=== PATIENT | male | born 1955 | race Caucasian/White ===

== ENCOUNTER 2019-10-27 07:59 | Day surgery (SDC) | payer BC ==
[~2019-10-27 07:59] MED LIST: CEFAZOLIN 2 Gram 2 GM/50 ML BAG IVPB ONE; CELECOXIB 100 MG CAPSULE PO ONE; FAMOTIDINE 20MG TABLET PO ONE; METOCLOPRAMIDE 10 MG TABLET PO ONE; SCOPOLAMINE 1 PATCH TDSY TD ONE; VANCOMYCIN 1GM/200ML PREMIX 1 GM/200 ML PIGGYBACK IVPB ONE
[2019-10-27] MEDS ORDERED: ROPIVACAINE HCL (NAROPIN) /PF 5MG/ML 20ML VIAL IV ONE (08:00)
[2019-10-27] MEDS ORDERED: DEXAMETHASONE 4 MG/ML 1ML VIAL IVP ONE (08:00)
[2019-10-27] MEDS ORDERED: MIDAZOLAM HCL 2MG/2ML VIAL IV ONE (08:00)
[2019-10-27] MEDS ORDERED: FENTANYL PF 100MCG/2ML VIAL IV ONE (08:00)
[2019-10-27] MEDS ORDERED: LIDOCAINE 2% MDV (20MG/ML) 20ML VIAL IV ONE (08:00)
[2019-10-27] MEDS ORDERED: PROPOFOL 10 MG/ML VIAL IV ONE (08:00)
[2019-10-27] MEDS ORDERED: HYDROCODONE/APAP 7.5/325MG TABLET PO PRN (08:18)
[2019-10-27] MEDS ORDERED: DIPHENHYDRAMINE HCL 25 MG CAPSULE PO PRN (08:18)
[2019-10-27] MEDS ORDERED: AL HYDROX/MAG HYDROX 30ML UD PO PRN (08:18)
[2019-10-27] MEDS ORDERED: HYDROCODONE/APAP 5/325MG TABLET PO PRN ×2 (08:18)
[2019-10-27] MEDS ORDERED: ACETAMINOPHEN W/ CODEINE 300MG/60MG TABLET PO PRN (08:18)
[2019-10-27] MEDS ORDERED: ONDANSETRON 4 MG ODT TABLET SL PRN (08:18)
[2019-10-27] MEDS ORDERED: BISACODYL 10 MG SUPP RC PRN (08:18)
[2019-10-27] MEDS ORDERED: METOCLOPRAMIDE 10 MG TABLET PO PRN (08:18)
[2019-10-27] MEDS ORDERED: ACETAMINOPHEN 325 MG TAB PO PRN (08:18)
[2019-10-27] MEDS ORDERED: HYDROMORPHONE HCL 2 MG/ML VIAL IM PRN ×2 (08:18)
[2019-10-27] MEDS ORDERED: KETOROLAC 30 MG/ML VIAL IVP PRN (08:18)
[2019-10-27] MEDS ORDERED: NALOXONE 0.4 MG/1 ML VIAL IVP PRN (08:18)
[2019-10-27] MEDS ORDERED: PROMETHAZINE HCL 25 MG TABLET PO PRN (08:18)
[2019-10-27] MEDS ORDERED: ACETAMINOPHEN W/ CODEINE 300MG/30MG TABLET PO PRN ×2 (08:18)
[2019-10-27] MEDS ORDERED: TRAMADOL HCL 50 MG TABLET PO PRN ×2 (08:18)
[2019-10-27] MEDS ORDERED: MAGNESIUM HYDROXIDE 30 ML UDC PO PRN (08:18)
[2019-10-27] MEDS ORDERED: RINGERS SOLUTION,LACTATED 1,000 ML IV ONE ×2 (09:00→11:12)
[2019-10-27 09:18] LABS: ABO GROUP O; ANTIBODY SCREEN NEGATIVE (NEGATIVE); RH TYPE POSITIVE
[2019-10-27] MEDS ORDERED: DOCUSATE SODIUM 100 MG CAPSULE PO SCH (10:00)
[2019-10-27] MEDS ORDERED: VANCOMYCIN HCL 1 GM VIAL IR ONE (10:40)
[2019-10-27] MEDS ORDERED: TRANEXAMIC ACID 1,000 MG/10 ML ML IU ONE (10:40)
[2019-10-27] MEDS ORDERED: BUPIVACAINE 0.5% W/EPI MPF 30 ML VIAL IU ONE (10:40)
[2019-10-27] MEDS ORDERED: TRANEXAMIC ACID 1,000 MG/10 ML ML IVPB ONE (10:40)
[2019-10-27] MEDS ORDERED: VANCOMYCIN HCL 1 GM VIAL IU ONE (10:40)
[2019-10-27] MEDS ORDERED: BUPIVACAINE LIPOSOME 266MG/20ML VIAL IU ONE (10:40)
[2019-10-27] MEDS ORDERED: VANCOMYCIN 500MG/100ML PREMIX 500 MG/100 ML PIGGYBACK IVPB ONE (13:00)
[2019-10-27] MEDS ORDERED: DEXTROSE 5 % AND 0.9 % NACL 1,000 ML IV PRN (13:00)
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
--- NOTE | 2019-10-28 06:03 | Operative Note ---
DATE OF SURGERY: 10/27/2019 PREOPERATIVE DIAGNOSIS: END STAGE LEFT KNEE ARTHROSIS. POSTOPERATIVE DIAGNOSIS: END STAGE LEFT KNEE ARTHROSIS. OPERATION: TOTAL LEFT KNEE ARTHROPLASTY. SURGEON: Mario Barr M.D. ANESTHESIA: Spinal. ANESTHESIA PROVIDER: PAMELLA Beal CRNA COMPLICATION: None. BLOOD LOSS: Minimal. OPERATIVE FINDINGS: [id number] erosive arthrosis lateral compartment. COMPONENTS PLACED: 2 gram Vancomycin cement Chamorro and Nephew Journey Oxinium size 7 femoral component, size 6 tibial baseplate, a 13 mm thick tibial poly insert, and 35 mm cemented patellar component. INDICATIONS FOR OPERATION: This is a 63-year-old male who has had persistent pain and dysfunction in his knee for several years. Failed nonoperative treatment and scheduled for the procedure above. I explained all risks and benefits in detail for the diagnosis and procedure including, but not limited to infection, nerve injury, vessel injury, persistent pain, stiffness, numbness, and tingling in the knee, periprosthetic fracture, need for resection arthroplasty if components become infected, loosen, nerve injury, vessel injury, blood clot, need for anticoagulation to prevent blood clots and risks associated with the use of these medications, and the need for further procedures. All of his questions were answered. Rehab course was outlined. He agreed to proceed. PROCEDURE: The patient was brought to the Operating Room, placed in the supine position, and prepped for surgery. Spinal anesthesia was induced. The left lower extremity and knee were prepped and draped in sterile fashion. The left knee was prepped again with ChloraPrep after it was draped. Intraoperative timeout was performed. Next, the anterior leg was exsanguinated with Esmarch, the knee was flexed. No tourniquet was used during the entire case. We used Aquamantys during each portion and layer of the procedure thoroughly cauterizing. Next the skin and subcutaneous tissue were dissected down and we incised the capsule medially along the medial border of the patella to the tibial tubercle. We incised the vastus medialis in line with its fibers using the medial lateral approach. Partially everted the retropatellar fat, and resected the retropatellar fat pad. We flexed the knee. He had [id number] erosive arthrosis with predominantly significant erosion in the lateral tibial compartment. Next we drilled the intracondylar drill and inserted the intramedullary guide nai with a 6-degree cutting block, aligned off the distal femoral condyles, and pinned it in the +2 mm position and cut the distal femoral condyles. Next we placed a sizing jig on the distal femoral condyle and sized it to be right on size 7. Through the previously placed pin holes, we placed a size 7, 5-in-1 cutting jig, we dialed the anterior cut so it would come out flush without notching. We then did that cut and it was a good flush cut, we then pinned it, and we cut the remainder of the chamfer cuts in the usual fashion. Next we placed a size 7 femoral component, centered it, pinned it, and removed osteophytes off the periphery. We inserted a resection collet, reamed out and box Osteomed out the cruciate bone block. Attention was turned to the tibia. We seated the alignment jig with spikes in the tubercular groove 2 fingerbreadths distal to the anterior tibial cortex off the centered tibial tubercle in reference for a 7 mm cut off the high medial plateau. We then pinned that in placed and verified we covered the posterior lateral erosion with the tibial lateral plateau which it would, we then rechecked the alignment with a drop nai through the cutting jig handle and cross pinned it and cut it to complete its fixation and cut the tibia. Next we removed osteophytes off the posterior femoral condyle using a curved osteotome, checked flexion/extension gap, basically sized up to a size 13 mm block insert, this allowed for 1-2 mm of varus/valgus laxity in flexion/extension. Overall alignment cuts in extension was anatomic in valgus orientation with alignment nai centered on the hip joint and ankle joint. Next we took the knee in flexion, we sized the tibial baseplate to be a size 6. We replaced all trial components, set the rotation tibial baseplate again in extension using the alignment rode centered on the hip joint and ankle joint. Marked pen cavanaugh off the laser marked anterior tibial baseplate. Attention was turned to the patella, and measured the patella to be 13 mm. We got the cutting jig to allow for 9 mm thick poly insert, we cut the patella, remeasured it, and it was at the premeasured size and then sized to be 35, medialized as much as possible, drilled 3 peg holes and inserted the patellar component, then did a trial range of motion and then we mixed cement. The patella tracked nicely handsfree, full extension and flexion to 150 degrees and again symmetric flexion/extension gap. Next we took the knee in flexion, we seated the tibial baseplate off the previously placed electrocautery cavanaugh, and drilled out and keel punched the keel hole. Next we placed a bone plug in the femoral canal hole. Next we irrigated copiously the posterior recesses and next cauterized with Aquamantys and we injected our bolus too as well in the posterior capsule with 0.5% Marcaine with Epinephrine, tranexamic acid, and Exparel mixture. Next we pre-coated both surfaces and placed a drill bit in the tibial hole and then impacted down the real tibial component and verified it was interlocked medially. We impacted down the tibial baseplate and removed excess cement and then the femoral component in the same fashion removing excess cement. We placed the trial tibial poly liner, held the knee in extension, clamped down the patella component removing excess cement until the cement held the knee in extension and removed all excess cement. Next we took the knee in flexion, distracted the knee with the bone hook and sponge, removed any excess remaining cement with osteotome and around the edge of the components, and irrigated copiously again, cauterized again, and then inserted the real tibial poly insert and verified it was interlocked mediolaterally and found the range of motion to be the same. Irrigated copiously, injected deeper now in the periosteum, vastus medialis, and quadriceps with our mixture again, close the capsule securing using running #2 Quill suture with the knee in flexion, irrigated and closed the skin deep with 2-0 Vicryl and a IBAN dressing was applied. The patient tolerated the procedure well. No intraoperative complications. Sponge, needle and blade counts correct. Recovery Room stable. Neurovascular intact. Discharged as an outpatient. Follow-up in two weeks. JOB NUMBER: [id number] [facility]
== END 2019-10-27 17:10 | disposition home health service (06) ==
LOC: SUR 07:59 → MEDSURG 12:28 → SUR 17:10
PROVIDERS: ATTEND Orthopaedic Surgery
DX: M17.12 Unilateral primary osteoarthritis, left knee (principal); I10 Essential (primary) hypertension; E78.00 Pure hypercholesterolemia, unspecified; J44.9 Chronic obstructive pulmonary disease, unspecified; F17.210 Nicotine dependence, cigarettes, uncomplicated
CPT/HCPCS: 76942; 86850; 86900; 86901; C1776; J1885; J3370; J7120